=== PATIENT | male | born 1930 | race Two or more races ===

== ENCOUNTER 2018-04-12 00:34 | Emergency (ER) | payer OTHER ==
[~2018-04-12] VITALS: Ht 162.6 cm; Wt 68.0 kg
[2018-04-12] MEDS ORDERED: ATENOLOL25 MG (00:40)
[2018-04-12] MEDS ORDERED: FINASTERIDE5 MG (00:41)
[2018-04-12] MEDS ORDERED: CHLORTHALIDONE25 MG (00:41)
[2018-04-12] MEDS ORDERED: OMEPRAZOLE20 MG (00:41)
[2018-04-12] MEDS ORDERED: PANADOL EXTRA500 MG (00:42)
[2018-04-12] MEDS ORDERED: TAMS0.4C (00:42)
[2018-04-12] MEDS ORDERED: ATORVASTATIN CA10 MG (00:45)
== END 2018-04-12 13:01 | disposition home or self-care (01) ==
LOC: ER 00:34
DX: K80.20 Calculus of gallbladder without cholecystitis without obstruction (principal)

== ENCOUNTER 2018-07-11 13:51 | Emergency (ER) | payer OTHER ==
[~2018-07-11] VITALS: Ht 162.6 cm; Wt 68.0 kg
[~2018-07-11 13:51] MED LIST: ATENOLOL25 MG; ATORVASTATIN CA10 MG; CHLORTHALIDONE25 MG; FINASTERIDE5 MG; OMEPRAZOLE20 MG; PANADOL EXTRA500 MG; TAMS0.4C
== END 2018-07-11 21:28 | disposition home or self-care (01) ==
LOC: ER 13:51
DX: S68.627A Partial traumatic transphalangeal amputation of left little finger, initial encounter (principal); W26.8XXA Contact with other sharp object(s), not elsewhere classified, initial encounter; Y93.89 Activity, other specified; Y92.89 Other specified places as the place of occurrence of the external cause; Y99.8 Other external cause status

== ENCOUNTER 2018-08-25 11:06 | Outpatient (CLI) | payer OTHER | END 2018-08-25 17:00 | disposition home or self-care (01) | LOC: MRI 11:06 | DX: M25.512 Pain in left shoulder (principal) | CPT/HCPCS: 73221 ==

== ENCOUNTER 2018-09-09 09:11 | Outpatient (CLI) | payer OTHER | END 2018-09-09 09:13 | disposition home or self-care (01) | LOC: RAD 09:11 | DX: M75.122 Complete rotator cuff tear or rupture of left shoulder, not specified as traumatic (principal) ==

== ENCOUNTER → 2020-01-13 | Outpatient (CLI) | payer OTHER | END | disposition home or self-care (01) | LOC: MAMO-SONO 07:45 → SONOGRAMA 08:46 | PROVIDERS: ATTEND Family Medicine Adult Medicine | DX: R10.811 Right upper quadrant abdominal tenderness (principal) ==